=== PATIENT | female | born 1955 | race Caucasian/White ===

== ENCOUNTER 2023-09-16 09:50 | Emergency (ER) | payer MEDICARE, MEDICAID | END 2023-09-16 13:01 | disposition home or self-care (01) | LOC: FB.ED 09:50 | DX: S00.83XA Contusion of other part of head, initial encounter (principal); S43.014A Anterior dislocation of right humerus, initial encounter; M24.9 Joint derangement, unspecified; E78.00 Pure hypercholesterolemia, unspecified; I10 Essential (primary) hypertension; E11.9 Type 2 diabetes mellitus without complications; Z88.5 Allergy status to narcotic agent | CPT/HCPCS: 23650; 73030-RT; 99283; 99283-25 ==